=== PATIENT | male | born 1965 | race Caucasian/White ===

== ENCOUNTER 2016-11-01 13:44 | Observation (INO) | payer MEDICARE ==
[2016-11-01 14:16] LABS: ABSOLUTE BASOPHILS # (AUTO) 0.1 10^3/uL (0.0-0.2); ABSOLUTE EOSINOPHILS # (AUTO) 0.2 10^3/uL (0.0-0.6); ABSOLUTE LYMPHOCYTES (AUTO) 2.9 10^3/uL (0.5-4.7); ABSOLUTE MONOCYTES (AUTO) 0.5 10^3/uL (0.1-1.4); ABSOLUTE NEUT (AUTO) 6.3 10^3/uL (1.7-8.2); BASOPHILS % (AUTO) 0.6 % (0-2); EOSINOPHILS % (AUTO) 1.5 % (0-6); HEMATOCRIT 43.9 % (37.9-51.0); HGB HCT DIFFERENCE 1.1; LYMPHOCYTES % (AUTO) 29.5 % (13-45); MEAN CORPUSCULAR HEMOGLOBIN 30.3 pg (27.0-33.4); MEAN CORPUSCULAR HGB CONC 34.1 g/dL (32.0-36.0); MEAN CORPUSCULAR VOLUME 89 fl (80-97); MONOCYTES % (AUTO) 5.4 % (3-13); RED BLOOD COUNT 4.95 10^6/uL (4.35-5.55); RED CELL DISTRIBUTION WIDTH 13.2 % (11.5-14.0); WHITE BLOOD COUNT 9.9 10^3/uL (4.0-10.5)
[2016-11-01 14:35] LABS: ALANINE AMINOTRANSFERASE 24 U/L (21-72); ALBUMIN 4.3 g/dL (3.5-5.0); ALKALINE PHOSPHATASE 72 U/L (38-126); ANION GAP 13 (5-19); ASPARTATE AMINO TRANSFERASE 13 U/L (17-59); BILIRUBIN,TOTAL 0.7 mg/dL (0.2-1.3); BLOOD UREA NITROGEN 16 mg/dL (7-20); CALCIUM 10.3 mg/dL (8.4-10.2); CARBON DIOXIDE 28 mmol/L (22-30); CHLORIDE 95 mmol/L (98-107); CREATINE KINASE 61 U/L (55-170); CREATININE RESULT 0.87 mg/dL (0.52-1.25); GLUCOSE 347 mg/dL (75-110); SODIUM 135.9 mmol/L (137-145); TOTAL PROTEIN 7.2 g/dL (6.3-8.2)
[2016-11-01 14:47] LABS: CREATINE KINASE MB 0.71 ng/mL (<4.55)
[2016-11-01 14:48] LABS: TROPONIN I < 0.012 ng/mL
[2016-11-01] MEDS ORDERED: NITROGLYCERIN 2% OINTMENT 1 GM PACKET TP ONE (14:59)
--- NOTE | 2016-11-01 15:04 | ER Document Report ---
ED General - General Chief Complaint: Chest Pain Stated Complaint: CHEST PAIN Mode of Arrival: Ambulatory Information source: Patient Notes: 51-year-old male history of 10 stents triple bypass 3 MIs presents with complaints of upper abdominal pain over the past week worsening with exertion associated with shortness of breath. Patient notes history of previous MIs have been in the same location. Patient notes relief of symptoms with nitroglycerin TRAVEL OUTSIDE OF THE [place] IN LAST 30 DAYS: No - HPI Onset: Last week Onset/Duration: Intermittent Quality of pain: Sharp Severity: Mild Pain Level: 2 Associated symptoms: Chest pain, Shortness of breath Exacerbated by: Walking Relieved by: Denies Similar symptoms previously: Yes Recently seen / treated by doctor: Yes - last heart catheter September - Related Data Allergies/Adverse Reactions: No Known Allergies Allergy (Verified 12/04/15 18:18) Past Medical History - Social History Smoking Status: Current Every Day Smoker Cigarette use (# per day): Yes Chew tobacco use (# tins/day): No Smoking Education Provided: Yes - Patient counselled regarding cessation for 4 minutes Family History: Reviewed & Not Pertinent, CAD, CVA, DM, Hypertension, Malignancy - Past Medical History Cardiac Medical History: Reports: Hx Atrial Fibrillation, Hx Congestive Heart Failure, Hx Coronary Artery Disease, Hx Heart Attack - x3, Hx Hypercholesterolemia, Hx Hypertension Pulmonary Medical History: Reports: Hx COPD Endocrine Medical History: Reports: Hx Diabetes Mellitus Type 2 Psychiatric Medical History: Reports: Hx Depression Past Surgical History: Reports: Hx Cardiac Catheterization, Hx Cardiac Surgery - triple bypass, stents x10, and defibrillator placement and pacemaker, Hx Coronary Artery Bypass Graft, Hx Open Heart Surgery - Immunizations Immunizations up to date: Yes Hx Diphtheria, Pertussis, Tetanus Vaccination: Yes Hx Pneumococcal Vaccination: 10/04/10 Physical Exam - Vital signs Vitals: Resp 18 11/01/16 13:54 Course - Vital Signs Vital signs: Temp Pulse Resp BP Pulse Ox 98.0 F 8 L 126/100 H 96 11/01/16 15:10 11/01/16 15:01 11/01/16 15:00 11/01/16 15:01 - Laboratory Result Diagrams: 11/01/16 14:00 11/01/16 14:00 Laboratory results interpreted by me: 11/01/16 14:00 Sodium 135.9 L Chloride 95 L Glucose 347 H Calcium 10.3 H AST 13 L Discharge - Discharge Clinical Impression: Encounter for smoking cessation counseling, COPD exacerbation, Myocardial disease Chest pain Qualifiers: Chest pain type: unspecified Qualified Code(s): R07.9 - Chest pain, unspecified Coronary artery disease Qualifiers: Coronary Disease-Associated Artery/Lesion type: bypass graft [place] vs. transplanted heart: [place] heart Associated angina: with stable angina Qualified Code(s): I25.708 - Atherosclerosis of coronary artery bypass graft(s) , unspecified, with other forms of angina pectoris Condition: Stable Disposition: ADMITTED INPATIENT Admitting Provider: Hospitalist Unit Admitted: Telemetry
[2016-11-01] MEDS ORDERED: ACETAMINOPHEN 650 MG SUPP.RECT PR PRN (17:00)
[2016-11-01] MEDS ORDERED: ONDANSETRON 4 MG TAB.RAPDIS PO PRN (17:00)
--- NOTE | 2016-11-01 17:47 | PDOC CONSULTATION ---
Consultation Consult Date: 11/01/16 Attending physician:: VA NGUYỄN Consult reason:: Chest pain History of Present Illness Admission Date/PCP: 11/01/16 17:09 Patient complains of: Chest pain History of Present Illness: SIMBA FRANCOIS is a 51 year old male, who is being admitted with lower chest and upper abdominal discomfort off and on. This has been going on for last 24-48 hours. There is no relation to exertion, meals or activity. Patient has also noted some increased shortness of breath on exertion. Patient has known significant coronary artery disease having had coronary artery bypass graft surgery in 2008. Subsequently he claims that he had 2 stents placed in September of this month at [facility]. Patient claims he has total of 10 stents in his heart. Patient continues to smoke intermittently but has significant exposure to secondhand smoking, in that his and son both smoke. Patient gives history of defibrillator placement which she claims was recently checked and was noted to be functioning normally. Patient's senior network administrator are at [facility]. Past Medical History Cardiac Medical History: Reports: Atrial Fibrillation, Congestive Heart Failure , Coronary Artery Disease, Myocardial Infarction - x3, Hyperlipidema, Hypertension Pulmonary Medical History: Reports: Chronic Obstructive Pulmonary Disease (COPD) Endocrine Medical History: Reports: Diabetes Mellitus Type 2 Psychiatric Medical History: Reports: Depression Past Surgical History Past Surgical History: Reports: Cardiac Catheterization, Coronary Artery Bypass Graft Social History Information Source: Patient Smoking Status: Current Every Day Smoker Frequency of Alcohol Use: None Hx Recreational Drug Use: No Drugs: Cocaine Hx Prescription Drug Abuse: Yes - Advance Directive Resuscitation Status: Full Code Family History Family History: Reviewed & Not Pertinent, CAD, CVA, DM, Hypertension, Malignancy Parental Family History Reviewed: Yes Children Family History Reviewed: Yes Sibling(s) Family History Reviewed.: Yes - Positive for premature CAD in the family Medication/Allergy Home Medications: Clopidogrel Bisulfate [Plavix 75 mg Tablet] 75 mg PO DAILY 04/01/15 Metoprolol Tartrate 50 mg PO DAILY 04/01/15 Aspirin [Aspirin 325 mg Tablet] 325 mg PO DAILY 05/18/15 Insulin Aspart Protam & Aspart [Novolog Mix 70-30 Flexpen Syrn] 35 unit SQ AC Insulin Aspart Protam & Aspart [Novolog Mix 70-30 Flexpen Syrn] 25 unit SQ HSP PRN 12/04/15 Acetaminophen with Codeine [Acetaminophen-Cod #3 Tablet] 1 each PO Q6H PRN 12/04 Doxycycline Hyclate [Vibramycin 100 mg Tablet] 100 mg PO Q12 #20 tablet Fluticasone/Salmeterol [Advair 250-50 Diskus 28 dose] 1 inh IH Q12H #1 inhaler 12/05/15 Oxycodone HCl/Acetaminophen [Percocet 5-325 mg Tablet] 1 - 2 tab PO ASDIR PRN Rosuvastatin Calcium [Crestor 20 mg Tablet] 25 mg PO BID 12/05/15 Spironolactone [Aldactone 25 mg Tablet] 12.5 mg PO BID tablet 12/05/15 Tiotropium [place] [Spiriva Handihaler 18 mcg/dose (30 Dose)] 1 cap IH DAILY # 30 capsule 12/05/15 Allergies/Adverse Reactions: No Known Allergies Allergy (Verified 11/01/16 16:49) Review of Systems Review of Systems: Please see history of present illness and past medical history as wall. Constitutional: No fever or chills reported. Head : No recent chronic headaches, recent head injury. Eyes: No recent eye pain, diplopia, redness, discharge, acute visual changes. Ears: No recent chronic ear pain, acute hearing loss, ear discharge. Oral cavity: No recent ulcerations, bleeding, oral cavity discomfort. Neck: No recent acute neck pain reported. Hematologic: No recent easy bruising or bleeding or hematologic malignancy reported. Lymphatic: No recent lymphatic malignancy, chronic lymphadenopathy reported yet Cardiovascular system review: See history of present illness. Respiratory system review: No recent chronic cough, hemoptysis, blood clots in the lungs reported. Mild Shortness of breath on exertion Gastrointestinal system review: Negative for any recent acute or chronic abdominal pain, hematemesis, melena, recent change in bowel habits. Genitourinary system review: No recent acute or chronic hematuria, flank pain, UTI etc. reported. Skin system review: Negative for any recent abnormal bruising, no rash, no pruritus reported. Neurologic: No prior history of strokes, mini strokes, seizure disorder. Psychologic: No history of major psychosis or depression reported. Musculoskeletal: Minor aches and pains reported. No acute joint swelling reported. Endocrine: No recent polyuria, polydipsia, recent heat or cold intolerance. Physical Exam Vital Signs: Temp Pulse Resp BP Pulse Ox 98.0 F 8 L 126/100 H 96 11/01/16 15:10 11/01/16 15:01 11/01/16 15:00 11/01/16 15:01 Exam: GENERAL: well-nourished and in no acute distress. Alert and oriented x3 HEAD: Atraumatic, normocephalic. EYES: Pupils equal round and reactive to light, extraocular movements intact, sclera anicteric, conjunctiva are normal. ENT: TMs normal, nares patent, oropharynx clear without exudates. Moist mucous membranes. No oral ulcerations or bleeding gums noted NECK: supple without lymphadenopathy. Trachea is central. No cervical or axillary lymphadenopathy noted. Carotids are 2+, JVD WNL LUNGS: Respiration seems nonlabored, no significant accessory muscle action noted. Breath sounds clear to auscultation bilaterally and equal. No wheezes rales or rhonchi. No significant dullness noted on percussion. CHEST: Palpation of the chest wall shows no significant chest wall tenderness or abnormalities. 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 Defibrillator noted on the left side chest. ABDOMEN: Soft, epigastric tenderness appreciated, normoactive bowel sounds. No guarding, no rebound. No rigidity noted . No masses appreciated. EXTREMITIES: Pedal pulses are 1-2+, no calf tenderness noted. No clubbing or cyanosis.trace to 1+ pedal edema noted NEUROLOGICAL: Focused neurological exam showed no significant neurologic deficit. Normal speech, no focal weakness appreciated. PSYCH: Normal mood, normal affect. Judgment and insight within normal limits. SKIN: No significant ecchymosis, rash, ulcerations or signs of pruritus noted. MUSCULOSKELETAL EXAM: No significant joint swelling noted. Results EKG Comments: Sinus rhythm, no acute ST-T wave changes noted. Impressions: Chest X-Ray 11/01/16 13:47 IMPRESSION: NO ACUTE RADIOGRAPHIC FINDING IN THE CHEST. Assessment & Plan - Diagnosis (1) Chest pain Qualifiers: Chest pain type: unspecified Qualified Code(s): R07.9 - Chest pain, unspecified Is this a current diagnosis for this admission?: YesPlan: Patient has significant coronary artery disease. At this point will obtain cardiac enzymes and also serial EKG. If patient has any recurrent chest pain or bumps in cardiac enzymes, would recommend transfer to [facility] and patient's private senior network administrator for cardiac catheterization. In the meantime we'll optimize medical management of his underlying CAD. In this regard will start patient on Ranexa, long-acting nitrate. Will also empirically place patient on proton pump inhibitors (2) Coronary artery disease Qualifiers: Coronary Disease-Associated Artery/Lesion type: unspecified vessel or lesion type [place] vs. transplanted heart: [place] heart Associated angina: with stable angina Qualified Code(s): I25.118 - Atherosclerotic heart disease of [place] coronary artery with other forms of angina pectoris Is this a current diagnosis for this admission?: YesPlan: Patient has significant CAD with multiple stents and history of bypass surgery. Patient to be treated with aggressive risk factor modification and medical management with revascularization as needed based on symptoms and presentation. Patient has been advised smoking cessation. (3) Tobacco abuse Is this a current diagnosis for this admission?: YesPlan: Patient gets significant secondhand and also some first-hand smoking. Patient advised on smoking cessation. (4) Cardiomyopathy Qualifiers: Cardiomyopathy type: ischemic Qualified Code(s): I25.5 - Ischemic cardiomyopathy Is this a current diagnosis for this admission?: YesPlan: Patient felt to have ischemic cardiomyopathy. Patient claims that his last ejection fraction was 18%. Patient claims to have a functioning defibrillator. (5) Status post internal cardiac defibrillator procedure Is this a current diagnosis for this admission?: YesPlan: Currently seems to be functioning normally based on history. - Notes Notes: CODE STATUS was discussed, patient remains full code. Surrogate decision-maker patient's . Multiple medical problems were addressed. - Time Time Spent: 30 to 50 Minutes - More than 50% of the time spent coordinating care , discussing management plans with involved caregivers. Management plans discussed with involved personnels. Medical decision making was of moderate complexity.
--- NOTE | 2016-11-01 18:08 | HISTORY AND PHYSICAL E ---
History and Physical NAME: SIMBA FRANCOIS : 1965 AGE: 51Y ADMITTED: 11/01/2016 ROOM: ED17 FAMILY DOCTOR: In [place]. RUG INSPECTOR: Dr. Armendariz in [place]. FIRE ALARM INSTALLER: Dr. Gaspar in [place]. He also follows in [facility] in [place] for possible heart transplant. CHIEF COMPLAINT: Chest pain. HISTORY OF PRESENT ILLNESS: The patient is a very pleasant 51-year-old male who has extensive cardiac history including CABG in 2008, multiple stent placements, hypertension, diabetes, hyperlipidemia. The patient has been in the process of evaluation for heart transplant at [facility] in [place]. He also had pacemaker/defibrillator placed in 04/2015, and his ejection fraction was 18. He is on Plavix, spironolactone, Crestor, metoprolol, lisinopril, and Lasix. The patient came to the Emergency Room with a chief complaint of chest pain which started today. The pain is described as heavy in the lower chest in the epigastric area and below, described as sharp, constant, associated with activity when he walks and increased to 10 out of 10. He has some nausea, but there is no vomiting. In the Emergency Room, he got nitroglycerin to ease the pain, but he still continued to have chest pain, but it is better. The pain is nonradiating and as I mentioned associated with difficulty breathing. There is no vomiting, no cough. He had an EKG which did not show any change. Initial cardiac enzymes were negative. Chest x-ray was unremarkable. REVIEW OF SYSTEMS: GENERAL: No fever, no chills. HEENT: Head: No headache. Eyes: No diplopia. Ears: No discharge from the ears. Nose: No discharge from the nose. Mouth: No pain or difficulty swallowing. CARDIOVASCULAR: As per history of present illness. RESPIRATORY: No cough, no wheezing, no hemoptysis. GASTROINTESTINAL: At this time, no nausea, no vomiting, no diarrhea. GENITOURINARY: No urgency, no frequency, no dysuria, no hematuria. ENDOCRINE: No polyuria, polydipsia, polydipsia. NEUROLOGIC: No seizure. SKIN: No rash. PAST MEDICAL HISTORY: 1. Coronary artery disease status post stent placement, CABG in 2008. 2. Hypertension. 3. Diabetes type 2. 4. Hyperlipidemia. PAST SURGICAL HISTORY: 1. CABG. 2. *------* placement. MEDICATIONS: 1. Plavix 75 mg daily. 2. Spironolactone 25 mg daily. 3. Aspirin 81 mg daily. 4. Crestor 40 mg daily. 5. Nitroglycerin. 6. Metoprolol 100 mg daily. 7. Lisinopril 5 mg. 8. Lasix 20 mg daily. ALLERGIES: He is not allergic to any medication. FAMILY HISTORY: Positive for heart disease. SOCIAL HISTORY: Smokes half a pack a day. Nondrinker. PHYSICAL EXAMINATION: GENERAL: The patient is lying in bed comfortable not in distress, well nourished. VITAL SIGNS: Blood pressure is 107/83. Heart rate 100. Saturation 97% on room air. Respiratory rate 14. Afebrile. HEENT: Head: Normocephalic, atraumatic. Eyes: Pupils round, reactive to light and accommodation bilaterally. Extraocular movements intact. Conjunctivae clear. Nose: No discharge from the nose. Ears: No discharge from the ears. NECK: Supple. No thyromegaly. No lymphadenopathy. CARDIOVASCULAR: Normal S1, S2. Regular rate and rhythm. No edema. RESPIRATORY: No deformity in the chest. Symmetrical movement of the chest. Lungs clear. GASTROINTESTINAL: Abdomen soft, nontender. No organomegaly. No guarding. No rebound. Bowel sounds active. MUSCULOSKELETAL: No edema. No joint deformity or swelling. NEUROLOGIC: Grossly intact. Cranial nerves are grossly intact II-XII. Awake, alert, oriented to time, place, and person. SKIN: There is no rash. HEMATOLOGIC/LYMPHATIC: No anemia. No easy bruising. No lymphadenopathy. PSYCHIATRIC: No depression. VASCULAR: Pulses palpable bilaterally. LABORATORIES: White blood count is 9.9; hemoglobin is 15. Cardiac enzymes are negative. EKG is normal. ASSESSMENT AND PLAN: The patient is a 51-year-old male with history of diabetes, hypertension, extensive coronary artery disease history, pacemaker and defibrillator placement. Ejection fraction is 18%. He follows Cardiology in [place]. The patient came with chest pain, and he will be admitted to rule out myocardial infarction. 1. Chest pain, rule out myocardial infarction. 2. Coronary artery disease status post coronary artery bypass graft. 3. Diabetes type 2. 4. Hypertension. 5. Hyperlipidemia. PLAN: We will admit the patient to telemetry for observation. We will get 3 sets of cardiac enzymes, Cardiology consult, *------*, oxygen, beta sandee; he is on metoprolol 100 once a day and lisinopril, statin. We will put him on Lipitor. Continue Plavix, aspirin. We will get EKG tomorrow morning. Labs tomorrow morning. TIME SPENT: 1 hour. DICTATING PHYSICIAN: KATHLEEN KEARNS M.D. [id number] PHY#: [id number] ID: [id number] JOB#: [id number] ACCT: [id number] cc:KATHLEEN KEARNS M.D. >
[2016-11-01] MEDS ORDERED: DEXTROSE 50%-WATER SYRINGE 12.5 GM/25 ML DOSE IV PRN (18:53)
[2016-11-01] MEDS ORDERED: DEXTROSE 50%-WATER SYRINGE 25 GM/50 ML DOSE IV PRN (18:53)
[2016-11-01] MEDS ORDERED: DEXTROSE 40% GEL 15 GM TUBE PO PRN (18:53)
[2016-11-01] MEDS ORDERED: GLUCAGON,HUMAN RECOMB 1 MG INJ IM PRN (18:53)
[2016-11-01] MEDS ORDERED: DEXTROSE 40% GEL 15 GM TUBE X 2 PO PRN (18:53)
[2016-11-01] MEDS: ISOSORBIDE MONONITRATE 30 MG TAB.ER.24H PO SCH (19:08)
[2016-11-01] MEDS: CLOPIDOGREL BISULFATE 75 MG TABLET PO SCH (19:08)
[2016-11-01] MEDS: METOPROLOL SUCCINATE 50 MG TAB.SR.24H PO SCH (19:09)
[2016-11-01] MEDS: LISINOPRIL 5 MG TABLET PO SCH (19:09)
[2016-11-01] MEDS: SPIRONOLACTONE 25 MG TABLET PO SCH (19:10)
[2016-11-01] MEDS: DOCUSATE SODIUM 100 MG CAPSULE PO SCH (19:12)
[2016-11-01] MEDS: INSULIN LISPRO 100 UNIT/ML 3 ML VIAL SUBCUT PRN (19:13)
[2016-11-01] MEDS: RANOLAZINE 500 MG TAB.SR.12H PO SCH (21:12)
[2016-11-01] MEDS ORDERED: ACETAMINOPHEN 325 MG TABLET PO PRN (21:17)
[2016-11-01] MEDS ORDERED: ATORVASTATIN CALCIUM 40 MG TABLET PO SCH (22:00)
[2016-11-01] MEDS ORDERED: ZOLPIDEM TARTRATE 5 MG TABLET PO SCH (22:00)
--- NOTE | 2016-11-01 23:03 | EKG REPORT ---
SEVERITY:- OTHERWISE NORMAL ECG - SINUS TACHYCARDIA LEFT AXIS DEVIATION : Confirmed by: Swapna Lee MD 01-Nov-2016 23:02:39
[2016-11-02] MEDS: FAMOTIDINE 20 MG TABLET PO SCH ×2 (00:10→09:29)
[2016-11-02] MEDS ORDERED: PROMETHAZINE HCL 25 MG TABLET PO PRN (00:31)
[2016-11-02] MEDS ORDERED: TEMAZEPAM 7.5 MG CAPSULE PO PRN (00:32)
[2016-11-02 03:10] LABS: CREATINE KINASE MB 0.55 ng/mL (<4.55); TROPONIN I < 0.012 ng/mL
[2016-11-02] MEDS ORDERED: ENOXAPARIN SODIUM INJ 40 MG/0.4 ML DISP.SYRIN SUBCUT SCH (08:00)
[2016-11-02 08:02] LABS: ABSOLUTE EOSINOPHILS # (AUTO) 0.3 10^3/uL (0.0-0.6); ABSOLUTE LYMPHOCYTES (AUTO) 3.6 10^3/uL (0.5-4.7); ABSOLUTE MONOCYTES (AUTO) 0.5 10^3/uL (0.1-1.4); ABSOLUTE NEUT (AUTO) 4.4 10^3/uL (1.7-8.2); BASOPHILS % (AUTO) 0.5 % (0-2); EOSINOPHILS % (AUTO) 3.2 % (0-6); HEMATOCRIT 40.5 % (37.9-51.0); HEMOGLOBIN 14.1 g/dL (13.5-17.0); HGB HCT DIFFERENCE 1.8; LYMPHOCYTES % (AUTO) 40.6 % (13-45); MEAN CORPUSCULAR HEMOGLOBIN 30.4 pg (27.0-33.4); MEAN CORPUSCULAR HGB CONC 34.9 g/dL (32.0-36.0); MEAN CORPUSCULAR VOLUME 87 fl (80-97); MONOCYTES % (AUTO) 5.9 % (3-13); RED BLOOD COUNT 4.66 10^6/uL (4.35-5.55); RED CELL DISTRIBUTION WIDTH 12.8 % (11.5-14.0); SEGMENTED NEUTROPHILS % (AUTO) 49.8 % (42-78); WHITE BLOOD COUNT 8.8 10^3/uL (4.0-10.5)
[2016-11-02] MEDS: IPRATROPIUM/ALBUTEROL 0.5-2.5 MG/3 ML AMPUL NEB SCH ×2 (08:16→11:53)
[2016-11-02 08:23] LABS: ALANINE AMINOTRANSFERASE 26 U/L (21-72); ALBUMIN 3.6 g/dL (3.5-5.0); ALKALINE PHOSPHATASE 67 U/L (38-126); ANION GAP 11 (5-19); ASPARTATE AMINO TRANSFERASE 13 U/L (17-59); BILIRUBIN,TOTAL 0.6 mg/dL (0.2-1.3); BLOOD UREA NITROGEN 21 mg/dL (7-20); CALCIUM 9.7 mg/dL (8.4-10.2); CARBON DIOXIDE 27 mmol/L (22-30); CHLORIDE 99 mmol/L (98-107); CHOLESTEROL 179.68 mg/dL (0-200); CREATINE KINASE 44 U/L (55-170); CREATININE RESULT 0.99 mg/dL (0.52-1.25); Direct HDL 38 mg/dL (>40); GLUCOSE 203 mg/dL (75-110); POTASSIUM 4.7 mmol/L (3.6-5.0); SODIUM 136.8 mmol/L (137-145); TOTAL PROTEIN 6.8 g/dL (6.3-8.2); TRIGLYCERIDES 153 mg/dL (<150)
--- NOTE | 2016-11-02 08:30 | EKG REPORT ---
SEVERITY:- ABNORMAL ECG - SINUS TACHYCARDIA BORDERLINE LEFT AXIS DEVIATION BORDERLINE T WAVE ABNORMALITIES BORDERLINE PROLONGED QT INTERVAL VPC : Confirmed by: Katrina Coe 02-Nov-2016 08:30:26
[2016-11-02 08:31] LABS: CREATINE KINASE MB 0.57 ng/mL (<4.55)
[2016-11-02 08:34] LABS: DIRECT LDL 115 mg/dL (<100)
[2016-11-02 08:37] LABS: TROPONIN I < 0.012 ng/mL; VLDL CHOLESTEROL 30.6 mg/dL (10-31)
[2016-11-02] MEDS: INSULIN LISPRO 100 UNIT/ML 3 ML VIAL SUBCUT PRN ×2 (08:40→12:33)
[2016-11-02] MEDS: SPIRONOLACTONE 25 MG TABLET PO SCH (09:27)
[2016-11-02] MEDS: DOCUSATE SODIUM 100 MG CAPSULE PO SCH (09:27)
[2016-11-02] MEDS: METOPROLOL SUCCINATE 50 MG TAB.SR.24H PO SCH (09:28)
[2016-11-02] MEDS: CLOPIDOGREL BISULFATE 75 MG TABLET PO SCH (09:29)
[2016-11-02] MEDS: LISINOPRIL 5 MG TABLET PO SCH (09:29)
[2016-11-02] MEDS: ISOSORBIDE MONONITRATE 30 MG TAB.ER.24H PO SCH (09:31)
[2016-11-02] MEDS: RANOLAZINE 500 MG TAB.SR.12H PO SCH (09:31)
[2016-11-02] MEDS ORDERED: NITROGLYCERIN 2.5 MG (0.1 MG/HR) PATCH.TD24 TD SCH (10:00)
[2016-11-02 12:11] VITALS: BP 100/68
--- NOTE | 2016-11-02 13:42 | PDOC DISCHARGE SUMMARY ---
General - Admit/Disc Date/PCP Admission Date/Primary Care Provider: 11/01/16 17:[address] Marcello Vasques Discharge Date: 11/02/16 - Discharge Diagnosis (1) CAD (coronary artery disease) Is this a current diagnosis for this admission?: YesSummary: Known history of coronary artery disease; multiple stents The patient did have counseling by Dr. Coe for smoking cessation (2) Cardiomyopathy Is this a current diagnosis for this admission?: YesSummary: Likely ischemic cardiomyopathy Patient has an implantable defibrillator. An echocardiogram is not available at at this time (3) Chest pain Is this a current diagnosis for this admission?: YesSummary: Intermittent chest pains Patient did have serial troponins that were negative He had cardiac catheterization in September Was referred back to his dynamo tender for follow-up Dr. Coe added Imdur and Ranexa to his present medications He also increased his lisinopril from 2.5 mg to 5 mg daily (4) Status post internal cardiac defibrillator procedure Is this a current diagnosis for this admission?: Yes (5) Tobacco abuse Is this a current diagnosis for this admission?: Yes (6) Diabetes mellitus type 2 Is this a current diagnosis for this admission?: YesSummary: Patient states he is taking new medications for his diabetes and is followed up closely The blood sugars were in the 200 range Patient is to follow-up with primary care physician Patient was placed on Trulicity a month ago - Additional Information Resuscitation Status: Full Code Discharge Diet: Cardiac Discharge Activity: Activity As Tolerated Home Medications: Aspirin [Ecotrin 81 mg EC Tablet] 81 mg PO DAILY 11/02/16 Clopidogrel Bisulfate [Plavix 75 mg Tablet] 75 mg PO DAILY 11/02/16 Dulaglutide [Trulicity] 0.75 mg SQ Q7D 11/02/16 Furosemide [Lasix 20 mg Tablet] 20 mg PO DAILY 11/02/16 Isosorbide Mononitrate [Imdur 30 mg Tablet.er] 30 mg PO DAILY #30 tab.er.24h Lisinopril [Prinivil 5 mg Tablet] 5 mg PO DAILY #30 tablet 11/02/16 Metoprolol Succinate [Toprol XL 100 mg Tablet] 100 mg PO DAILY 11/02/16 Nitroglycerin [Nitrostat 0.4 mg (1/150 Gr) Tabs 25/Bottle] 0.4 mg PO ASDIR PRN 11/02/16 Ranolazine [Ranexa 500 mg Tab.sr] 500 mg PO Q12 #60 tab.sr.12h 11/02/16 Rosuvastatin Calcium [Crestor] 40 mg PO DAILY 11/02/16 Spironolactone 25 mg PO DAILY 11/02/16 History of Present Illness History of Present Illness: SIMBA FRANCOIS is a 51 year old male who is being admitted with lower chest and upper abdominal discomfort off and on. This has been going on for last 24-48 hours. There is no relation to exertion, meals or activity. Patient has also noted some increased shortness of breath on exertion. Patient has known significant coronary artery disease having had coronary artery bypass graft surgery in 2008. Subsequently he claims that he had 2 stents placed in September of this month at [facility] Hospital Course Hospital Course: See above Physical Exam Vital Signs: Temp Pulse Resp BP Pulse Ox 97.7 F 102 H 16 100/68 96 11/02/16 11:53 11/02/16 11:53 11/02/16 11:53 11/02/16 11:53 11/02/16 11:53 Intake & Output 11/01/16 11/02/16 11/03/16 00:59 00:59 00:59 Intake Total 400 10 Balance 400 10 Weight 69.7 kg 68.4 kg General appearance: PRESENT: no acute distress, well-developed, well-nourished Head exam: PRESENT: atraumatic, normocephalic Eye exam: PRESENT: conjunctiva pink, EOMI, PERRLA. ABSENT: scleral icterus Ear exam: PRESENT: normal external ear exam Mouth exam: PRESENT: moist, tongue midline Neck exam: ABSENT: carotid bruit, JVD, lymphadenopathy, thyromegaly Respiratory exam: PRESENT: clear to auscultation sarah. ABSENT: rales, rhonchi, wheezes Cardiovascular exam: PRESENT: RRR. ABSENT: diastolic murmur, rubs, systolic murmur Pulses: PRESENT: normal dorsalis pedis pul Vascular exam: PRESENT: normal capillary refill GI/Abdominal exam: PRESENT: normal bowel sounds, soft. ABSENT: distended, guarding, mass, organolmegaly, rebound, tenderness Rectal exam: PRESENT: deferred Extremities exam: PRESENT: full ROM. ABSENT: calf tenderness, clubbing, pedal edema Neurological exam: PRESENT: alert, awake, oriented to person, oriented to place , oriented to time, oriented to situation, CN II-XII grossly intact. ABSENT: motor sensory deficit Psychiatric exam: PRESENT: appropriate affect, normal mood. ABSENT: homicidal ideation, suicidal ideation Skin exam: PRESENT: dry, intact, warm. ABSENT: cyanosis, rash Results Laboratory Results: 11/02/16 07:35 11/02/16 07:35 11/02/16 11/02/16 07:35 07:35 WBC 8.8 RBC 4.66 Hgb 14.1 Hct 40.5 MCV 87 MCH 30.4 MCHC 34.9 RDW 12.8 Plt Count 282 Seg Neutrophils % 49.8 Lymphocytes % 40.6 Monocytes % 5.9 Eosinophils % 3.2 Basophils % 0.5 Absolute Neutrophils 4.4 Absolute Lymphocytes 3.6 Absolute Monocytes 0.5 Absolute Eosinophils 0.3 Absolute Basophils 0.0 Sodium 136.8 L Potassium 4.7 Chloride 99 Carbon Dioxide 27 Anion Gap 11 BUN 21 H Creatinine 0.99 Est GFR ( Amer) > 60 Est GFR (Non-Af Amer) > 60 Glucose 203 H Calcium 9.7 Phosphorus 5.0 H Total Bilirubin 0.6 AST 13 L ALT 26 Alkaline Phosphatase 67 Total Protein 6.8 Albumin 3.6 Triglycerides 153 H Cholesterol 179.68 LDL Cholesterol Direct 115 H VLDL Cholesterol 30.6 HDL Cholesterol 38 L 11/01/16 11/01/16 11/01/16 18:00 18:00 18:00 Creatine Kinase 59 CK-MB (CK-2) 0.68 Troponin I < 0.012 11/02/16 11/02/16 11/02/16 00:09 00:09 07:35 Creatine Kinase 49 L CK-MB (CK-2) 0.55 0.57 Troponin I < 0.012 < 0.012 11/02/16 07:35 Creatine Kinase 44 L CK-MB (CK-2) Troponin I EKG Comments: Sinus tachycardia ST-T changes Impressions: Chest X-Ray 11/01/16 13:47 IMPRESSION: NO ACUTE RADIOGRAPHIC FINDING IN THE CHEST. Plan Discharge Plan: Patient was referred back to his dynamo tender for follow-up Imdur and Ranexa were added to present medications Dr. Coe we'll schedule him also for a sleep study test Time Spent: Greater than 30 Minutes
--- NOTE | 2016-11-02 21:27 | PDOC PROGRESS REPORT ---
Subjective Progress Note for:: 11/02/16 Subjective:: Patient seems to be doing better. Pt is denying any chest arm or neck discomfort. Patient denying any PND, orthopnea. Patient denied any sustained palpitations, dizziness, syncope, near syncope. Patient denying any fever chills. Patient denying any other significant discomfort. Patient is maintaining sinus rhythm. Patient's cardiac enzymes has come back negative. Review of systems: Rest review of systems negative. Medications: Medications have been reviewed. Physical Exam Vital Signs: Temp Pulse Resp BP Pulse Ox 97.7 F 96 16 100/68 96 11/02/16 13:34 11/02/16 13:34 11/02/16 13:34 11/02/16 13:34 11/02/16 13:34 Intake & Output 11/01/16 11/02/16 11/03/16 06:59 06:59 06:59 Intake Total 410 Balance 410 Weight 68.4 kg Exam: GENERAL: well-nourished and in no acute distress. Alert and oriented x3 HEAD: Atraumatic, normocephalic. EYES: Pupils equal round and reactive to light, extraocular movements intact, sclera anicteric, conjunctiva are normal. ENT: TMs normal, nares patent, oropharynx clear without exudates. Moist mucous membranes. No oral ulcerations or bleeding gums noted NECK: supple without lymphadenopathy. Trachea is central. No cervical or axillary lymphadenopathy noted. Carotids are 2+, JVD WNL LUNGS: Respiration seems nonlabored, no significant accessory muscle action noted. Breath sounds clear to auscultation bilaterally and equal. No wheezes rales or rhonchi. No significant dullness noted on percussion. CHEST: Palpation of the chest wall shows no significant chest wall tenderness or abnormalities. HEART: Lydia TELETYPESETTER, No PSH, 1/6 SHANTAL aortic area, 1/6 barron systolic murmur mitral area, no rubs, no gallops. ABDOMEN: Soft, no significant tenderness appreciated, normoactive bowel sounds. No guarding, no rebound. No rigidity noted . No masses appreciated. EXTREMITIES: Pedal pulses are 1-2+, no calf tenderness noted. No clubbing or cyanosis.trace to 1+ pedal edema noted NEUROLOGICAL: Focused neurological exam showed no significant neurologic deficit. Normal speech, no focal weakness appreciated. PSYCH: Normal mood, normal affect. Judgment and insight within normal limits. SKIN: No significant ecchymosis, rash, ulcerations or signs of pruritus noted. MUSCULOSKELETAL EXAM: No significant joint swelling noted. Results Laboratory Results: 11/02/16 07:35 11/02/16 07:35 11/02/16 11/02/16 07:35 07:35 WBC 8.8 RBC 4.66 Hgb 14.1 Hct 40.5 MCV 87 MCH 30.4 MCHC 34.9 RDW 12.8 Plt Count 282 Seg Neutrophils % 49.8 Lymphocytes % 40.6 Monocytes % 5.9 Eosinophils % 3.2 Basophils % 0.5 Absolute Neutrophils 4.4 Absolute Lymphocytes 3.6 Absolute Monocytes 0.5 Absolute Eosinophils 0.3 Absolute Basophils 0.0 Sodium 136.8 L Potassium 4.7 Chloride 99 Carbon Dioxide 27 Anion Gap 11 BUN 21 H Creatinine 0.99 Est GFR ( Amer) > 60 Est GFR (Non-Af Amer) > 60 Glucose 203 H Calcium 9.7 Phosphorus 5.0 H Total Bilirubin 0.6 AST 13 L ALT 26 Alkaline Phosphatase 67 Total Protein 6.8 Albumin 3.6 Triglycerides 153 H Cholesterol 179.68 LDL Cholesterol Direct 115 H VLDL Cholesterol 30.6 HDL Cholesterol 38 L 11/01/16 11/01/16 11/01/16 18:00 18:00 18:00 Creatine Kinase 59 CK-MB (CK-2) 0.68 Troponin I < 0.012 11/02/16 11/02/16 11/02/16 00:09 00:09 07:35 Creatine Kinase 49 L CK-MB (CK-2) 0.55 0.57 Troponin I < 0.012 < 0.012 11/02/16 07:35 Creatine Kinase 44 L CK-MB (CK-2) Troponin I Impressions: Chest X-Ray 11/01/16 13:47 IMPRESSION: NO ACUTE RADIOGRAPHIC FINDING IN THE CHEST. Assessment & Plan - Diagnosis (1) Chest pain Qualifiers: Chest pain type: unspecified Qualified Code(s): R07.9 - Chest pain, unspecified Is this a current diagnosis for this admission?: Yes (2) Coronary artery disease Qualifiers: Coronary Disease-Associated Artery/Lesion type: unspecified vessel or lesion type [place] vs. transplanted heart: [place] heart Associated angina: with stable angina Qualified Code(s): I25.118 - Atherosclerotic heart disease of [place] coronary artery with other forms of angina pectoris Is this a current diagnosis for this admission?: Yes (3) Tobacco abuse Is this a current diagnosis for this admission?: Yes (4) Cardiomyopathy Qualifiers: Cardiomyopathy type: ischemic Qualified Code(s): I25.5 - Ischemic cardiomyopathy Is this a current diagnosis for this admission?: Yes (5) Status post internal cardiac defibrillator procedure Is this a current diagnosis for this admission?: Yes - Notes Notes: Chest pain: Resolved. EKGs were negative. Cardiac enzymes are negative. Patient claims he had a stress test in August. He also had a recent heart catheter with stent placement. Have optimize medical management for underlying CAD. Patient advised on his smoking cessation. Coronary artery disease: Currently symptomatically stable. Medical regimen has been optimized. Tobacco abuse: Patient has history of chronic smoking. Discussed detrimental effect of chronic smoking including worsening COPD, increased risk of cardiovascular events, cerebrovascular events, cancer and multiple other side effects of smoking. Cardiomyopathy: Currently stable. No evidence of volume overload or CHF. 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 - Time Time with patient: 15-25 minutes - CODE STATUS was discussed, patient remains full code. Surrogate decision-maker unchanged. Multiple medical problems were addressed.More than 50% of the time spent coordinating care, discussing management plans with involved caregivers. Management plans discussed with involved personnels. Medical decision making was of moderate complexity.
[2016-11-02] MEDS ORDERED: ASPIRIN 81 MG TABLET, CHEWABLE PO SCH (22:00)
== END 2016-11-02 14:03 | disposition home or self-care (01) ==
LOC: ER 13:44 → EH 17:00 → UNDOADMOB 17:09 → 4S 18:22
PROVIDERS: ADMIT Internal Medicine; ATTEND Internal Medicine
DX: R07.9 Chest pain, unspecified (principal); I25.118 Atherosclerotic heart disease of native coronary artery with other forms of angina pectoris; I25.5 Ischemic cardiomyopathy; I25.2 Old myocardial infarction; E11.9 Type 2 diabetes mellitus without complications; I11.0 Hypertensive heart disease with heart failure; I50.9 Heart failure, unspecified; E78.5 Hyperlipidemia, unspecified; Z95.1 Presence of aortocoronary bypass graft; Z95.810 Presence of automatic (implantable) cardiac defibrillator; Z79.02 Long term (current) use of antithrombotics/antiplatelets; I48.91 Unspecified atrial fibrillation; F17.210 Nicotine dependence, cigarettes, uncomplicated
CPT/HCPCS: 93005 ×2; 99406; 99285; 80069; 36415 ×2; 82553 ×2; 82962 ×2; 82550 ×2; 85025 ×2; 80053 ×2; 84484 ×2; 80061; 71010; 93010 ×2; G0378 ×3; A9270 ×11; J1650; J1815

== ENCOUNTER 2016-11-18 07:55 | Emergency (ER) | payer MEDICARE ==
[2016-11-18] MEDS ORDERED: ASPIRIN 81 MG TABLET, CHEWABLE PO ONE (08:06)
[2016-11-18] MEDS ORDERED: NORMAL SALINE 1000 ML 1,000 ML IV ONE (08:20)
--- NOTE | 2016-11-18 08:24 | ER Document Report ---
ED General - General Chief Complaint: Palpitations Stated Complaint: PALPITATIONS Mode of Arrival: Ambulatory Information source: Patient Notes: 51-year-old male history of 3 MIs 10 stents triple bypass was at cardiac rehabilitation noted his heart rate to be in the 130s while exercising and 120s at rest presents with complaints of heart racing episodes as well as abdominal discomfort. Patient notes it does not feel like his previous heart attacks however is in the same area. Denies any shortness of breath or difficulty breathing. Patient had recently been admitted for cardiac concerns and cardiac enzymes are negative at that time. Patient does take his medications as prescribed TRAVEL OUTSIDE OF THE [place] IN LAST 30 DAYS: No - HPI Onset: Yesterday Onset/Duration: Sudden Quality of pain: Cramping Severity: Mild Pain Level: 1 Associated symptoms: Chest pain Exacerbated by: Denies Relieved by: Denies Similar symptoms previously: Yes Recently seen / treated by doctor: Yes - Related Data Allergies/Adverse Reactions: No Known Allergies Allergy (Verified 11/18/16 08:02) Home Medications: Current Home Medications Gabapentin 300 mg PO 11/18/16 [History] Past Medical History - Social History Smoking Status: Current Every Day Smoker Cigarette use (# per day): No Chew tobacco use (# tins/day): No Smoking Education Provided: No Frequency of alcohol use: None Drug Abuse: None Family History: Reviewed & Not Pertinent, CAD, CVA, DM, Hypertension, Malignancy Patient has suicidal ideation: No Patient has homicidal ideation: No - Past Medical History Cardiac Medical History: Reports: Hx Atrial Fibrillation, Hx Congestive Heart Failure, Hx Coronary Artery Disease, Hx Heart Attack - x3, Hx Hypercholesterolemia, Hx Hypertension Pulmonary Medical History: Reports: Hx COPD Endocrine Medical History: Reports: Hx Diabetes Mellitus Type 2 Renal/ Medical History: Denies: Hx Peritoneal Dialysis Psychiatric Medical History: Reports: Hx Depression Past Surgical History: Reports: Hx Cardiac Catheterization, Hx Cardiac Surgery - triple bypass, stents x10, and defibrillator placement and pacemaker, Hx Coronary Artery Bypass Graft, Hx Open Heart Surgery - Immunizations Immunizations up to date: Yes Hx Diphtheria, Pertussis, Tetanus Vaccination: Yes Hx Pneumococcal Vaccination: 09/03/16 Review of Systems - Review of Systems Notes: REVIEW OF SYSTEMS: CONSTITUTIONAL : Denies fever, chills, or sweats. Denies recent illness. EENT: Denies eye, ear, throat, or mouth pain or symptoms. Denies nasal or sinus congestion or discharge. Denies throat, tongue, or mouth swelling or difficulty swallowing. CARDIOVASCULAR: Admits to palpitations RESPIRATORY: Denies cough, cold, or chest congestion. Denies shortness of breath, difficulty breathing, or wheezing. GASTROINTESTINAL: Admits to epigastric abdominal pain GENITOURINARY: Denies difficulty urinating, painful urination, burning, frequency, blood in urine, or discharge. MUSCULOSKELETAL: Denies back or neck pain or stiffness. Denies joint pain or swelling. SKIN: Denies rash, lesions or sores. HEMATOLOGIC : Denies easy bruising or bleeding. LYMPHATIC: Denies swollen, enlarged glands. NEUROLOGICAL: Denies confusion or altered mental status. Denies passing out or loss of consciousness. Denies dizziness or lightheadedness. Denies headache. Denies weakness or paralysis or loss of use of either side. Denies problems with gait or speech. Denies sensory loss, numbness, or tingling. Denies seizures. PSYCHIATRIC: Denies anxiety or stress. Denies depression, suicidal ideation, or homicidal ideation. ALL OTHER SYSTEMS REVIEWED AND NEGATIVE. Dictation was performed using [employer] voice recognition software PHYSICAL EXAMINATION: GENERAL: Well-appearing, well-nourished and in no acute distress. HEAD: Atraumatic, normocephalic. EYES: Pupils equal round and reactive to light, extraocular movements intact, sclera anicteric, conjunctiva are normal. ENT: Nares patent, oropharynx clear without exudates. Moist mucous membranes. NECK: Normal range of motion, supple without lymphadenopathy LUNGS: Breath sounds clear to auscultation bilaterally and equal. No wheezes rales or rhonchi. HEART: Tachycardic but Regular rate and rhythm without murmurs ABDOMEN: Soft, nontender, nondistended abdomen. No guarding, no rebound. No masses appreciated. Musculoskeletal: Normal range of motion, no pitting or edema. No cyanosis. NEUROLOGICAL: Cranial nerves grossly intact. Normal speech, normal gait. Normal sensory, motor exams PSYCH: Normal mood, normal affect. SKIN: Warm, Dry, normal turgor, no rashes or lesions noted. Physical Exam - Vital signs Vitals: Pulse Ox 98 11/18/16 08:06 Course - Re-evaluation Re-evalutation: 11/18/16 08:23 Physical examination notes no significant abnormality patient is noted to be mildly tachycardic in the room between 105-110 rest. Patient will be given fluids TSH enzymes are pending at this time. I have low suspicion for cardiac event given that the patient states this is different however given his cardiac history I will order enzymes at this time 11/18/16 11:08 I offered the patient admission for the palpitations and sensation of achiness, patient prefers to be discharged. I explained to him that he is at high risk for cardiac events and should be admitted, he promises to see a wrapper dipper immediately, I will provide him with the name of 3 separate wrapper dipper. Patient has been told that he must return immediately if there is any other concerns. Patient states he understands and will do so any promises me he will return if there is any other concerns After performing a Medical Screening Examination, I estimate there is LOW risk for RUPTURED ESOPHAGUS, PNEUMOTHORAX, PULMONARY EMBOLISM, ACUTE CORONARY SYNDROME, OR THORACIC AORTIC DISSECTION, thus I consider the discharge disposition reasonable. The patient and I have discussed the diagnosis and risks , and we agree with discharging home with close follow-up. We also discussed returning to the Emergency Department immediately if new or worsening symptoms occur. We have discussed the symptoms which are most concerning (e.g., bloody sputum, worsening pain or shortness of breath) that necessitate immediate return. - Vital Signs Vital signs: Temp Pulse Resp BP Pulse Ox 97.9 F 15 118/88 H 96 11/18/16 09:04 11/18/16 09:01 11/18/16 09:01 11/18/16 09:01 - Laboratory Result Diagrams: 11/18/16 08:17 11/18/16 08:17 Laboratory results interpreted by me: 11/18/16 08:17 Glucose 203 H - EKG Interpretation by [place] EKG shows normal: Sinus rhythm, [place], Intervals, QRS Complexes Rate: Tachycardia Discharge - Discharge Clinical Impression: Tachycardia Coronary artery disease Qualifiers: Coronary Disease-Associated Artery/Lesion type: unspecified vessel or lesion type [place] vs. transplanted heart: [place] heart Associated angina: with stable angina Qualified Code(s): I25.118 - Atherosclerotic heart disease of [place] coronary artery with other forms of angina pectoris Condition: Stable Disposition: HOME, SELF-CARE Instructions: Palpitations (Irregular or Rapid Heartrate) ([facility]) Referrals: HERLINDA VELÁZQUEZ MD [Primary Care Provider] - Follow up tomorrow YASMANY GUAN MD [ACTIVE STAFF] - Follow up tomorrow DADA QUAN MD [ACTIVE STAFF] - Follow up tomorrow CAT CLEMENTS MD [EMERITUS] - Follow up tomorrow
[2016-11-18 08:29] LABS: ABSOLUTE BASOPHILS # (AUTO) 0.1 10^3/uL (0.0-0.2); ABSOLUTE EOSINOPHILS # (AUTO) 0.2 10^3/uL (0.0-0.6); ABSOLUTE MONOCYTES (AUTO) 0.7 10^3/uL (0.1-1.4); ABSOLUTE NEUT (AUTO) 6.1 10^3/uL (1.7-8.2); BASOPHILS % (AUTO) 0.6 % (0-2); EOSINOPHILS % (AUTO) 1.8 % (0-6); HEMATOCRIT 43.2 % (37.9-51.0); HEMOGLOBIN 14.9 g/dL (13.5-17.0); HGB HCT DIFFERENCE 1.5; LYMPHOCYTES % (AUTO) 22.3 % (13-45); MEAN CORPUSCULAR HEMOGLOBIN 30.5 pg (27.0-33.4); MEAN CORPUSCULAR HGB CONC 34.5 g/dL (32.0-36.0); MEAN CORPUSCULAR VOLUME 88 fl (80-97); MONOCYTES % (AUTO) 8.2 % (3-13); RED CELL DISTRIBUTION WIDTH 13.4 % (11.5-14.0); SEGMENTED NEUTROPHILS % (AUTO) 67.1 % (42-78); WHITE BLOOD COUNT 9.1 10^3/uL (4.0-10.5)
[2016-11-18 08:52] LABS: ALANINE AMINOTRANSFERASE 35 U/L (21-72); ALBUMIN 4.9 g/dL (3.5-5.0); ALKALINE PHOSPHATASE 79 U/L (38-126); ANION GAP 13 (5-19); ASPARTATE AMINO TRANSFERASE 20 U/L (17-59); BILIRUBIN,TOTAL 0.7 mg/dL (0.2-1.3); BLOOD UREA NITROGEN 13 mg/dL (7-20); CARBON DIOXIDE 25 mmol/L (22-30); CHLORIDE 102 mmol/L (98-107); CREATINE KINASE 141 U/L (55-170); CREATININE RESULT 0.91 mg/dL (0.52-1.25); GLUCOSE 203 mg/dL (75-110); POTASSIUM 4.1 mmol/L (3.6-5.0); SODIUM 140.2 mmol/L (137-145); TOTAL PROTEIN 8.1 g/dL (6.3-8.2)
[2016-11-18 09:04] LABS: CREATINE KINASE MB 1.71 ng/mL (<4.55); TROPONIN I < 0.012 ng/mL
--- NOTE | 2016-11-18 09:44 | EKG REPORT ---
SEVERITY:- BORDERLINE ECG - SINUS TACHYCARDIA LEFT AXIS DEVIATION BORDERLINE PROLONGED QT INTERVAL : Confirmed by: Katrina Coe 18-Nov-2016 09:44:32
[2016-11-18 12:09] VITALS: BP 106/83
== END 2016-11-18 12:12 | disposition home or self-care (01) ==
LOC: ER 07:55
DX: I25.118 Atherosclerotic heart disease of native coronary artery with other forms of angina pectoris (principal); R00.0 Tachycardia, unspecified; R00.2 Palpitations; F17.200 Nicotine dependence, unspecified, uncomplicated; I48.91 Unspecified atrial fibrillation; I50.9 Heart failure, unspecified; I11.0 Hypertensive heart disease with heart failure; E11.9 Type 2 diabetes mellitus without complications; Z95.1 Presence of aortocoronary bypass graft; I25.2 Old myocardial infarction; Z95.810 Presence of automatic (implantable) cardiac defibrillator
CPT/HCPCS: 93005; 99285; 36415; 82553; 82550; 84443; 85025; 80053; 84484; 71010; 93010; A9270; J7030

== ENCOUNTER 2017-06-03 23:36 | Emergency (ER) | payer MEDICARE ==
[2017-06-03 23:44] VITALS: BP 142/89
[2017-06-04] MEDS ORDERED: IBUPROFEN 800 MG TABLET PO ONE (00:24)
--- NOTE | 2017-06-04 00:31 | ER Document Report ---
ED General - General Chief Complaint: Wrist Injury Stated Complaint: RT HAND INJURY Time Seen by Provider: 06/04/17 00:07 Mode of Arrival: Ambulatory Information source: Patient Notes: 51-year-old male presents with complaints of right wrist injury after fall earlier yesterday. Patient has been icing it all day. He denies any other injuries patient is able to move his hand but it hurts across the distal radius and ulnar TRAVEL OUTSIDE OF THE [place] IN LAST 30 DAYS: No - HPI Onset: Yesterday Onset/Duration: Sudden Quality of pain: Pressure Severity: Mild Pain Level: 1 Associated symptoms: Body/muscle aches Exacerbated by: Movement Relieved by: Denies Similar symptoms previously: No Recently seen / treated by doctor: No - Related Data Allergies/Adverse Reactions: No Known Allergies Allergy (Verified 11/18/16 08:02) Past Medical History - Social History Smoking Status: Current Every Day Smoker Cigarette use (# per day): Yes Chew tobacco use (# tins/day): No Smoking Education Provided: No Family History: Reviewed & Not Pertinent, CAD, CVA, DM, Hypertension, Malignancy Patient has suicidal ideation: No Patient has homicidal ideation: No - Past Medical History Cardiac Medical History: Reports: Hx Atrial Fibrillation, Hx Congestive Heart Failure, Hx Coronary Artery Disease, Hx Heart Attack - x3, Hx Hypercholesterolemia, Hx Hypertension Pulmonary Medical History: Reports: Hx COPD Endocrine Medical History: Reports: Hx Diabetes Mellitus Type 2 Renal/ Medical History: Denies: Hx Peritoneal Dialysis Psychiatric Medical History: Reports: Hx Depression Past Surgical History: Reports: Hx Cardiac Catheterization, Hx Cardiac Surgery - triple bypass, stents x10, and defibrillator placement and pacemaker, Hx Coronary Artery Bypass Graft, Hx Open Heart Surgery - Immunizations Immunizations up to date: Yes Hx Diphtheria, Pertussis, Tetanus Vaccination: Yes Hx Pneumococcal Vaccination: 09/03/16 Review of Systems - Review of Systems Notes: REVIEW OF SYSTEMS: CONSTITUTIONAL : Denies fever, chills, or sweats. Denies recent illness. EENT: Denies eye, ear, throat, or mouth pain or symptoms. Denies nasal or sinus congestion or discharge. Denies throat, tongue, or mouth swelling or difficulty swallowing. CARDIOVASCULAR: Denies chest pain. Denies palpitations or racing or irregular heart beat. Denies ankle edema. RESPIRATORY: Denies cough, cold, or chest congestion. Denies shortness of breath, difficulty breathing, or wheezing. GASTROINTESTINAL: Denies abdominal pain or distention. Denies nausea, vomiting , or diarrhea. Denies blood in vomitus, stools, or per rectum. Denies black, tarry stools. Denies constipation. GENITOURINARY: Denies difficulty urinating, painful urination, burning, frequency, blood in urine, or discharge. MUSCULOSKELETAL: Admits to wrist pain SKIN: Denies rash, lesions or sores. HEMATOLOGIC : Denies easy bruising or bleeding. LYMPHATIC: Denies swollen, enlarged glands. NEUROLOGICAL: Denies confusion or altered mental status. Denies passing out or loss of consciousness. Denies dizziness or lightheadedness. Denies headache. Denies weakness or paralysis or loss of use of either side. Denies problems with gait or speech. Denies sensory loss, numbness, or tingling. Denies seizures. PSYCHIATRIC: Denies anxiety or stress. Denies depression, suicidal ideation, or homicidal ideation. ALL OTHER SYSTEMS REVIEWED AND NEGATIVE. Dictation was performed using [employer] voice recognition software PHYSICAL EXAMINATION: GENERAL: Well-appearing, well-nourished and in no acute distress. HEAD: Atraumatic, normocephalic. EYES: Pupils equal round and reactive to light, extraocular movements intact, sclera anicteric, conjunctiva are normal. ENT: Nares patent, oropharynx clear without exudates. Moist mucous membranes. NECK: Normal range of motion, supple without lymphadenopathy LUNGS: Breath sounds clear to auscultation bilaterally and equal. No wheezes rales or rhonchi. HEART: Regular rate and rhythm without murmurs ABDOMEN: Soft, nontender, nondistended abdomen. No guarding, no rebound. No masses appreciated. Musculoskeletal: Mild tenderness at the distal ulna radius no obvious deformity mild edema NEUROLOGICAL: Cranial nerves grossly intact. Normal speech, normal gait. Normal sensory, motor exams PSYCH: Normal mood, normal affect. SKIN: Warm, Dry, normal turgor, no rashes or lesions noted. Physical Exam - Vital signs Vitals: Temp Pulse Resp BP Pulse Ox 97.9 F 78 18 142/89 H 99 06/03/17 23:40 06/03/17 23:40 06/03/17 23:40 06/03/17 23:40 06/03/17 23:40 Course - Re-evaluation Re-evalutation: 06/04/17 00:30 X-rays pending at this time 06/04/17 01:06 X-ray noted no significant abnormality, images have been provided to the patient otherwise he is stable for discharge After performing a Medical Screening Examination, I estimate there is LOW risk for INTRACRANIAL HEMORRHAGE, UNSTABLE SPINE FRACTURE, CENTRAL CORD SYNDROME, CAUDA EQUINA, THORACIC AORTIC DISSECTION, PNEUMOTHORAX, PERFORATED BOWEL, RUPTURED ABDOMINAL AORTIC ANEURYSM, ACUTE TENDON RUPTURE, COMPARTMENT SYNDROME, or OPEN FRACTURE, thus I consider the discharge disposition reasonable. Also, there is no evidence or peritonitis, sepsis, or toxicity. I have reevaluated this patient multiple times and no significant life threatening changes are noted. The patient and I have discussed the diagnosis and risks, and we agree with discharging home to follow-up with their primary doctor with the understanding that symptoms and presentations can change. We also discussed returning to the Emergency Department immediately if new or worsening symptoms occur. We have discussed the symptoms which are most concerning (e.g., bloody stool, fever, changing or worsening pain, vomiting) that necessitate immediate return. - Vital Signs Vital signs: Temp Pulse Resp BP Pulse Ox 97.9 F 78 18 142/89 H 99 06/03/17 23:40 06/03/17 23:40 06/03/17 23:40 06/03/17 23:40 06/03/17 23:40 - Diagnostic Test Radiology reviewed: Image reviewed, Reports reviewed - report given to patient Discharge - Discharge Clinical Impression: Fall Qualifiers: Encounter type: initial encounter Qualified Code(s): W19.XXXA - Unspecified fall, initial encounter Wrist pain Qualifiers: Laterality: right Qualified Code(s): M25.531 - Pain in right wrist Condition: Stable Disposition: HOME, SELF-CARE Instructions: Wrist Sprain ([facility]) Prescriptions: Hydrocodone/Acetaminophen [[place] 5-325 mg Tablet] 1 tab PO Q6 #10 tablet Referrals: ARINA PEREZ MD [ACTIVE STAFF] - Follow up tomorrow
[2017-06-04] MEDS ORDERED: ACETAMINOPHEN 325 MG TABLET PO ONE (00:39)
--- NOTE | 2017-06-04 00:57 | RADIOLOGY REPORT (SQ) ---
EXAM DESCRIPTION: WRIST RIGHT 3 VIEWS COMPLETED DATE/TIME: 06/04/2017 12:32 am REASON FOR STUDY: wrist injury COMPARISON: None. NUMBER OF VIEWS: Three views. TECHNIQUE: AP, lateral, and oblique radiographic images acquired of the right wrist. LIMITATIONS: None. FINDINGS: MINERALIZATION: Normal. BONES: No acute fracture or dislocation. No worrisome bone lesions. Normal alignment. Moderate ost eoarthritis of the 1st carpometacarpal joint including moderate osteophytes. 0.2 cm ossicular loose body at the lateral aspect of the distal right scaphoid. Mild deformity of the 5th metacarpus consis tent with old injury. 0.4 x 0.2 cm curvilinear faint calcification at the ulnocarpal joint. SOFT TISSUES: No soft tissue swelling. No foreign body. OTHER: No other significant finding. IMPRESSION: Moderate osteoarthritis of the 1st carpometacarpal joint. 0.2 cm ossicular loose body at the lateral aspect of the distal right scaphoid. Mild deformity of the 5th metacarpus consistent wit h old injury. 0.4 x 0.2 cm curvilinear faint calcification at the ulnocarpal joint of indeterminate a ge. TECHNICAL DOCUMENTATION: JOB ID: [id number] [employer]- All Rights Reserved
== END 2017-06-04 01:44 | disposition home or self-care (01) ==
LOC: ER 23:36
DX: S69.91XA Unspecified injury of right wrist, hand and finger(s), initial encounter (principal); M25.531 Pain in right wrist; W19.XXXA Unspecified fall, initial encounter
CPT/HCPCS: 99283; 73110; L3908; A9270